=== PATIENT | female | born 1995 | race Caucasian/White ===

== ENCOUNTER 2022-03-15 13:39 | Emergency (ER) | payer SELFPAY ==
[~2022-03-15] VITALS: Ht 162.6 cm; Wt 74.8 kg
[2022-03-15] MEDS ORDERED: PARO10 PO (15:57)
[2022-03-15] MEDS ORDERED: Bactrim Ds Tab1 EACH PO (15:57)
[2022-03-15] MEDS ORDERED: TRAZ50 PO (15:57)
== END 2022-03-15 16:11 | disposition home or self-care (01) ==
LOC: ER 13:39
DX: L05.01 Pilonidal cyst with abscess (principal); F17.200 Nicotine dependence, unspecified, uncomplicated
CPT/HCPCS: A9270